=== PATIENT | male | born 1970 | race Caucasian/White ===

== ENCOUNTER 2019-06-11 11:44 | Inpatient (IN) | payer OTHER ==
--- NOTE | 2019-06-11 13:26 | BHS.RME ---
Substance Use & Tx History - Substance Use History Alcohol Substance amount: 3 pints of vodka Frequency of use: Daily Substance route: Oral Date of Last Use: 06/11/19 Nicotine Substance amount: 1/2 pack Frequency of use: Daily Substance route: Smoking Date of Last Use: 06/11/19 Physical/Psych/Mental Status - Behavior General Behavior: Increased activity (restlessness, agitation) Eye Contact: Normal - Cooperativeness Cooperativeness: Cooperative - Thinking Thought Processes: Tight, Logical, Goal Directed Thought content: Future oriented - Physical Health Problems Is patient presently having any pain?: No Does patient presently have any injuries (include location): No Does patient currently have a fever: No Is patient : No CIWA Nausea/Vomitin Muscle Tremors: 7-Severe,w/o Arm Extended Anxiety: 4-Mod. Anxious/Guarded Agitation: 4-Moderately Restless Paroxysmal Sweats: 3 Orientation: 1-Uncertain about Date Tacttile Disturbances: 0-None Auditory Disturbances: 0-None Visual Disturbances: 0-None Headache: 2-Mild CIWA-Ar Total Score: 23
--- NOTE | 2019-06-11 13:32 | HP ---
CIWA Score Nausea/Vomitin Muscle Tremors: 7-Severe,w/o Arm Extended Anxiety: 4-Mod. Anxious/Guarded Agitation: 4-Moderately Restless Paroxysmal Sweats: 3 Orientation: 1-Uncertain about Date Tacttile Disturbances: 0-None Auditory Disturbances: 0-None Visual Disturbances: 0-None Headache: 2-Mild CIWA-Ar Total Score: 23 - Admission Criteria OASAS Guidelines: Admission for Medically Managed Detox: Requires at least one of the followin. CIWA greater than 12 2. Seizures within the past 24 hours 3. Delirium tremens within the past 24 hours 4. Hallucinations within the past 24 hours 5. Acute intervention needed for co occurring medical disorder 6. Acute intervention needed for co occurring psychiatric disorder 7. Severe withdrawal that cannot be handled at a lower level of care (continued vomiting, continued diarrhea, abnormal vital signs) requiring intravenous medication and/or fluids 8. Admitting History and Physical - Admission Chief Complaint: "I want to stop drinking." History of Present Illness: 48 year old male with history of alcohol dependence with intoxication. He was here in 03/2019 and completed detox. He immediately relapsed. He is drinking up to 3 pints of vodka daily started at age 46 and last drank today. 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 He denies seizures. Nicotine: 10 ciggs per day started at age 11 and smoked today PMH: None Psurg: L4-L5 fusion surgery in 1995 Psych: PTSD from [place] War. He has poor recovery environment, he has poor judgment and poor coping skills exacerbated by his PTSD. He needs inpatient detox from alcohol. History Source: Patient Limitations to Obtaining History: No Limitations - Past Surgical History Additional Past Surgical History: back surgery in 1995 - Smoking History Smoking history: Current every day smoker Have you smoked in the past 12 months: Yes Aproximately how many cigarettes per day: 10 - Alcohol/Substance Use Hx Alcohol Use: Yes (3 pints vodka) Number of Drinks Daily: 10 - Social History Usual Living Arrangement: Yes: Alone Do you think of yourself as: Straight/Heterosexual ADL: Independent Occupation: unemployed History of Recent Travel: No Admission ROS [facility] Exam Limitations: No Limitations - Ebola screening Have you traveled outside of the country in the last 21 days: No Have you had contact with anyone from an Ebola affected area: No Have you been sick,other than usual withdrawal symptoms: No Do you have a fever: No - Review of Systems Constitutional: No Symptoms Reported EENT: reports: No Symptoms Reported Respiratory: reports: No Symptoms reported Cardiac: reports: No Symptoms Reported GI: reports: No Symptoms Reported : reports: No Symptoms Reported Musculoskeletal: reports: No Symptoms Reported Integumentary: reports: No Symptoms Reported Neuro: reports: No Symptoms reported Endocrine: reports: No Symptoms Reported Hematology: reports: No Symptoms Reported Psychiatric: reports: Judgement Intact, Agitated, Anxious Other Systems: Reviewed and Negative Patient History - Patient Medical History Hx Anemia: No Hx Asthma: No Hx Chronic Obstructive Pulmonary Disease (COPD): No Hx Cancer: No Hx Cardiac Disorders: No Hx Congestive Heart Failure: No Hx Hypertension: No Hx Hypercholesterolemia: No Hx Pacemaker: No HX Cerebrovascular Accident: No Hx Seizures: No Hx Dementia: No Hx Diabetes: No Hx Gastrointestinal Disorders: No Hx Liver Disease: No Hx Genitourinary Disorders: No Hx Sexually Transmitted Disorders: No Hx Renal Disease (ESRD): No Hx Thyroid Disease: No Hx Human Immunodeficiency Virus (HIV): No Hx Hepatitis C: No Hx Depression: No Hx Suicide Attempt: No Hx Bipolar Disorder: No Hx Schizophrenia: No - Patient Surgical History Hx Orthopedic Surgery: Yes (L4-L5 spinal fusion) - PPD History Previous Implant?: Yes Documented Results: Negative w/o proof Implanted On Prior R Admission?: No Date: 03/25/19 Results: negative PPD to be Administered?: Yes - Smoking Cessation Smoking history: Current every day smoker Have you smoked in the past 12 months: Yes Aproximately how many cigarettes per day: 10 Hx Chewing Tobacco Use: No Initiated information on smoking cessation: Yes 'Breaking Loose' booklet given: 06/11/19 - Substances abused Alcohol Substance route: Oral Frequency: Daily Amount used: 3 pints vodka Age of first use: 46 Date of last use: 06/10/19 Admission Physical Exam BHS - Physical General Appearance: Yes: No Apparent Distress, Nourished, Disheveled, Irritable , Sweating, Anxious, Other (had bed bug infestation) HEENTM: Yes: EOMI, Hearing grossly Normal, Normal ENT Inspection, Normocephalic , Normal Voice, TICO, Pharynx Normal, Tm's normal, Orbits (left orbital hematoma ) Respiratory: Yes: Chest Non-Tender, Lungs Clear, Normal Breath Sounds, No Respiratory Distress, No Accessory Muscle Use Neck: Yes: No masses,lesions,Nodules, Supple, Trachea in good position Breast: Yes: Within Normal Limits Cardiology: Yes: Regular Rhythm, Regular Rate, S1, S2 Abdominal: Yes: Normal Bowel Sounds, Non Tender, Flat, Soft Genitourinary: Yes: Within Normal Limits Back: Yes: Normal Inspection Musculoskeletal: Yes: full range of Motion, Gait Steady, Pelvis Stable Extremities: Yes: Normal Capillary Refill, Normal Inspection, Normal Range of Motion, Non-Tender Neurological: Yes: sample cutter II-XII NML intact, Fully Oriented, Alert, Motor Strength 5/5, Normal Mood/Affect, Normal Response Integumentary: Yes: Normal Color, Warm Lymphatic: Yes: Within Normal Limits - Diagnostic (1) Alcohol dependence with withdrawal Current Visit: Yes Status: Acute (2) Cachexia Current Visit: Yes Status: Acute (3) PTSD (post-traumatic stress disorder) Current Visit: Yes Status: Acute (4) Hx of spinal fusion Current Visit: Yes Status: Acute Screened but not Admitted - Documentation of Visit Screened but not Admitted: No Inpatient Rehab Admission - Rehab Decision to Admit Inpatient rehab admission?: No
[2019-06-11] MEDS ORDERED: MAG HYDROX/AL HYDROX/SIMETH 30 ML UNIT-DOSE CUP PO PRN (13:35)
[2019-06-11] MEDS ORDERED: MAGNESIUM HYDROX 2400MG/30ML ORAL SUSPENSION 30 ML CUP PO PRN (13:35)
[2019-06-11] MEDS ORDERED: BISMUTH SUBSALICYLATE 262 MG/15 ML BTL PO PRN (13:35)
[2019-06-11] MEDS ORDERED: MAGNESIUM CITRATE 300 ML BOTTLE PO PRN (13:35)
[2019-06-11] MEDS ORDERED: ACETAMINOPHEN 325 MG TABLET (FP) PO PRN ×2 (13:35)
[2019-06-11] MEDS ORDERED: MENTHOL/PHENOL 1 EACH UD MM PRN (13:35)
[2019-06-11] MEDS ORDERED: METHOCARBAMOL 500 MG TABLET PO PRN (13:35)
[2019-06-11] MEDS ORDERED: IBUPROFEN 400 MG TABLET (FP) PO PRN (13:35)
[2019-06-11] MEDS ORDERED: MELATONIN 5 MG TABLETS PO PRN (13:35)
[2019-06-11 13:50] VITALS: BMI 20.3
[2019-06-11] MEDS ORDERED: PERMETHRIN (NIX CREAM SCALP RINSE) 59 ML 1% BOTTLE TP ONE (14:15)
[2019-06-11] MEDS ORDERED: cloNIDine HCL 0.1 MG TABLET PO ONE (14:42)
[2019-06-11] MEDS ORDERED: chlordiazePOXIDE HCL 25 MG CAPSULE PO ONE (14:43)
--- NOTE | 2019-06-11 14:46 | PN ---
[facility] Progress Note Note: patient with withdrawal symptom Vital Signs Temperature 97.8 F 06/11/19 14:16 Pulse Rate 84 06/11/19 14:16 Respiratory Rate 18 06/11/19 14:16 Blood Pressure 187/118 H 06/11/19 14:16 O2 Sat by Pulse Oximetry (%) librium 50 mgs po now clonodine 0.1 mg po now close monitoring
[2019-06-11] MEDS: NICOTINE 14 MG/24 HOURS TOPICAL PATCH TD SCH (15:02)
[2019-06-11] MEDS: hydrOXYzine PAMOATE 25 MG CAPSULE (FP) PO PRN (15:04)
[2019-06-11] MEDS: chlordiazePOXIDE HCL 25 MG CAPSULE PO SCH ×2 (17:11→22:41)
[2019-06-11] MEDS: chlordiazePOXIDE HCL 25 MG CAPSULE PO PRN (18:52)
[2019-06-11] MEDS: THIAMINE HCL 100 MG TABLET (FP) PO SCH (22:40)
[2019-06-12] MEDS: chlordiazePOXIDE HCL 25 MG CAPSULE PO PRN (01:14)
[2019-06-12] MEDS: hydrOXYzine PAMOATE 25 MG CAPSULE (FP) PO PRN (01:16)
[2019-06-12] MEDS: chlordiazePOXIDE HCL 25 MG CAPSULE PO SCH ×4 (05:46→22:21)
--- NOTE | 2019-06-12 10:17 | PN ---
S CIWA - CIWA Score Nausea/Vomitin-No Nausea/No Vomiting Muscle Tremors: 2 Anxiety: 3 Agitation: 0-Normal Activity Paroxysmal Sweats: 3 Orientation: 0-Oriented Tacttile Disturbances: 1-Very Mild Itch/Numbness Auditory Disturbances: 0-None Visual Disturbances: 0-None Headache: 2-Mild CIWA-Ar Total Score: 11 [facility] Progress Note (SOAP) Subjective: c/o sweats, anxiety, shakes, and headache. Objective: 06/12/19 10:14 Vital Signs 06/12/19 06/12/19 06/12/19 03:28 07:23 09:30 Temperature 98.2 F 97.6 F Pulse Rate 94 H 87 Respiratory 16 18 18 Rate Blood Pressure 141/99 142/96 Labs pending. Assessment: 06/12/19 10:15 AOX3, in no respiratory distress. Full ROM. contact precaution maintained. Withdrawal symptoms. Methadone dose 100mg po daily verified by tameka Paredes RN, with Ronni Simmons, DEMARIO at [facility] ([phone]). As per RN, pt missed 4days. Was medicated with methadone 80mg po at his program on 06/11/19. Pt will continue with methadone 80mg po daily. Explained to pt which he verbalized understanding. Plan: continue detox.
[2019-06-12] MEDS: METHADONE HCL 40 MG DISPERSABLE TABLET PO SCH (10:59)
[2019-06-12] MEDS: PRENATAL VITAMINS W/ FOLIC ACID TABLET (FP) PO SCH (10:59)
[2019-06-12] MEDS: NICOTINE 14 MG/24 HOURS TOPICAL PATCH TD SCH (10:59)
[2019-06-12] MEDS ORDERED: FLU VACCINE QUAD 60 MCG/0.5 ML (MDV 19-20) IM ONE (12:00)
--- NOTE | 2019-06-12 14:50 | PN ---
[facility] Progress Note Note: I was called to see this 48year old male with c/o fall in his room. Pt was seen at bedside awake, alert, and verbally responsive and in no acute respiratory distress. Pt states, "I lost my balance and fell flat on my back". Pt denies hitting his head, denies any dizziness, lightheadedness, chest pain, headache, or LOC. Pt c/o generalized body weakness at the moment. Pt is a poor historian unable to elaborate on the fall. Fall was unwitnessed. As per clinical staff pharmacist, pt called while laying in bed and informed her that he fell. Pt refused for the practitioner to assess him at this time but agrees to go to the ED for evaluation. No visible injuries noted at this time. vital signs 96.7, 107, 20, 140/89. Verbal report given to Dr. Fernando at [facility] ED.
--- NOTE | 2019-06-12 20:32 | PN ---
[facility] Progress Note Note: Patient returns from ED after evaluation of fall on unit. CT scan neg. Patient w/ yellow/purple july-orbital discoloration (L) eye area. Non-tender. Alert. States hit head few days ago (prior to admission). Sclera clear. Gross tremors at rest. Denies headache. Denies back or leg pain. Gait steady. Movements quick. Thickened, silvery/whitish rash (L) anterior calf area 16 cm oval. Non-tender. Plan: ED visit reviewed and cleared for return to [facility]. Continue fall protocol. Encourage to avoid quick movements. Continue detox. No infestations of head, chest or july-anal hairs noted. D/c contact isolation. Cotisone to (L) leg eczema
[2019-06-12] MEDS ORDERED: HYDROCORTISONE 1% TOPICAL CREAM 30 GM TUBE TP PRN (20:48)
[2019-06-12] MEDS: THIAMINE HCL 100 MG TABLET (FP) PO SCH (22:21)
[2019-06-13] MEDS: chlordiazePOXIDE HCL 25 MG CAPSULE PO SCH ×2 (05:40→10:33)
[2019-06-13] MEDS: METHADONE HCL 40 MG DISPERSABLE TABLET PO SCH (05:40)
[2019-06-13 09:25] LABS: BASO % 1.9 % (0-2.0); EOS % 6.1 % (0-4.5); HEMATOCRIT 38.8 % (35.4-49); HEMOGLOBIN 13.2 GM/dL (11.7-16.9); LYMPH % 27.1 % (8-40); MCH 34.6 pg (25.7-33.7); MEAN PLT VOLUME 9.9 fl (7.5-11.1); MONO % 7.1 % (3.8-10.2); NEUT % 57.8 % (42.8-82.8); PLATELET COUNT 83 K/MM3 (134-434); RDW 14.3 % (11.9-15.9); WHITE BLOOD COUNT 4.9 K/mm3 (4.0-10.0)
[2019-06-13 09:34] LABS: ALBUMIN 3.2 g/dl (3.4-5.0); BILIRUBIN,TOTAL 0.9 mg/dL (0.2-1); BLOOD UREA NITROGEN 23.1 mg/dL (7-18); CALCIUM 9.2 mg/dL (8.5-10.1); POTASSIUM 3.8 mmol/L (3.5-5.1); TOT PROT 6.7 g/dl (6.4-8.2)
[2019-06-13] MEDS: PRENATAL VITAMINS W/ FOLIC ACID TABLET (FP) PO SCH (10:31)
[2019-06-13] MEDS: NICOTINE 14 MG/24 HOURS TOPICAL PATCH TD SCH (10:31)
[2019-06-13 11:34] VITALS: BP 104/78; PULSE 101; TEMP 96.2
--- NOTE | 2019-06-13 11:47 | PN ---
[facility] CIWA - CIWA Score Nausea/Vomitin-Mild Nausea/No Vomiting Muscle Tremors: 3 Anxiety: 3 Agitation: 2 Paroxysmal Sweats: 2 Orientation: 0-Oriented Tacttile Disturbances: 0-None Auditory Disturbances: 0-None Visual Disturbances: 2-Mild Sensitivity Headache: 0-None Present CIWA-Ar Total Score: 13 [facility] Progress Note (SOAP) Subjective: 48 years old male admitted on 06/11/19 for alcohol withdrawal sx management treating with librium detox regiment sitting on the edge of the bed eating breakfast alert speech clearly tolerate food and fluid well no trouble chewing nor swallowing
--- NOTE | 2019-06-13 11:54 | DS ---
[facility] Detox Discharge Summary Admission Date: 06/11/19 Discharge Date: 06/13/19 - History Present History: Alcohol Dependence Additional Comments: 48 years old male admitted on 06/11/19 for alcohol withdrawal sx management treated with librium detox regiment had unwitnessed fall sent to ER later return for detox Mr Magdaleno is alert oriented x 3 speech clearly coherently steady gait patient insists to leave the detox "things to do" patient requests clothing security has clothing for him Pertinent Past History: time for discharge 54 minutes patient walks out the detox unit "I do not need to be here" advertising writer call property [id number] that the patient has safely arrived the property area speech clearly patient insists to leave the detox and eventually walks out the unit appears in property area - Physical Exam Results Vital Signs: Vital Signs Temperature 96.2 F L 06/13/19 09:55 Pulse Rate 101 H 06/13/19 09:55 Respiratory Rate 18 06/13/19 09:55 Blood Pressure 104/78 06/13/19 09:55 O2 Sat by Pulse Oximetry (%) Pertinent Admission Physical Exam Findings: alcohol withdrawal Vital Signs Temperature 96.2 F L 06/13/19 09:55 Pulse Rate 101 H 06/13/19 09:55 Respiratory Rate 18 06/13/19 09:55 Blood Pressure 104/78 06/13/19 09:55 O2 Sat by Pulse Oximetry (%) Laboratory Last Values WBC 4.9 K/mm3 (4.0-10.0) 06/13/19 07:30 RBC 3.80 M/mm3 (4.00-5.60) L 06/13/19 07:30 Hgb 13.2 GM/dL (11.7-16.9) 06/13/19 07:30 Hct 38.8 % (35.4-49) 06/13/19 07:30 MCV 102.0 fl (80-96) H 06/13/19 07:30 MCH 34.6 pg (25.7-33.7) H 06/13/19 07:30 MCHC 34.0 g/dl (32.0-35.9) 06/13/19 07:30 RDW 14.3 % (11.9-15.9) 06/13/19 07:30 Plt Count 83 K/MM3 (134-434) L 06/13/19 07:30 MPV 9.9 fl (7.5-11.1) 06/13/19 07:30 Absolute Neuts (auto) 2.8 K/mm3 (1.5-8.0) 06/13/19 07:30 Neutrophils % 57.8 % (42.8-82.8) 06/13/19 07:30 Lymphocytes % 27.1 % (8-40) 06/13/19 07:30 Monocytes % 7.1 % (3.8-10.2) 06/13/19 07:30 Eosinophils % 6.1 % (0-4.5) H 06/13/19 07:30 Basophils % 1.9 % (0-2.0) 06/13/19 07:30 Nucleated RBC % 0 % (0-0) 06/13/19 07:30 Sodium 136 mmol/L (136-145) 06/13/19 07:30 Potassium 3.8 mmol/L (3.5-5.1) 06/13/19 07:30 Chloride 98 mmol/L (98-107) 06/13/19 07:30 Carbon Dioxide 31 mmol/L (21-32) 06/13/19 07:30 Anion Gap 7 MMOL/L (8-16) L 06/13/19 07:30 BUN 23.1 mg/dL (7-18) H 06/13/19 07:30 Creatinine 1.0 mg/dL (0.55-1.3) 06/13/19 07:30 Est GFR (CKD-EPI)AfAm 101.26 06/13/19 07:30 Est GFR (CKD-EPI)NonAf 87.37 06/13/19 07:30 Random Glucose 106 mg/dL (74-106) 06/13/19 07:30 Calcium 9.2 mg/dL (8.5-10.1) 06/13/19 07:30 Total Bilirubin 0.9 mg/dL (0.2-1) 06/13/19 07:30 AST 137 U/L (15-37) H 06/13/19 07:30 ALT 111 U/L (13-61) H 06/13/19 07:30 Alkaline Phosphatase 116 U/L (45-117) 06/13/19 07:30 Ammonia 53.20 umol/L (11-32) H 06/13/19 07:30 Total Protein 6.7 g/dl (6.4-8.2) 06/13/19 07:30 Albumin 3.2 g/dl (3.4-5.0) L 06/13/19 07:30 RPR Titer Nonreactive (NONREACTIVE) 06/13/19 07:30 lab noted low plt discontinue motrin ast elevation discontinue librium begin ativan ammonia elevatoin begin lactulose - Treatment Hospital Course: Detox Protocol Followed, Discharged Condition Good Patient has Accepted a Rehab Referral to: [facility] - Medication Discharge Medications: Ambulatory Orders NK [No Known Home Medication] 06/11/19 - Diagnosis (1) Increased ammonia level Current Visit: Yes Status: Chronic (2) Elevated AST (SGOT) Current Visit: Yes Status: Chronic (3) Temporary low platelet count Current Visit: Yes Status: Acute (4) Alcohol dependence with withdrawal Current Visit: Yes Status: Acute Qualifiers: Complication of substance-induced condition: uncomplicated Qualified Code(s ): F10.230 - Alcohol dependence with withdrawal, uncomplicated - AMA Did Patient Leave Against Medical Advice: Yes CIWA Score - CIWA Score Nausea/Vomitin-No Nausea/No Vomiting Muscle Tremors: 2 Anxiety: 3 Agitation: 0-Normal Activity Paroxysmal Sweats: 3 Orientation: 0-Oriented Tacttile Disturbances: 1-Very Mild Itch/Numbness Auditory Disturbances: 0-None Visual Disturbances: 0-None Headache: 2-Mild CIWA-Ar Total Score: 11
[2019-06-13] MEDS ORDERED: LORazepam 0.5 MG TABLET PO PRN (12:07)
[2019-06-13] MEDS ORDERED: LACTULOSE 20 GM/30 ML UDC (FOR ORAL USE ONLY) PO SCH (14:00)
[2019-06-13] MEDS ORDERED: LORazepam 0.5 MG TABLET PO SCH (17:00)
[2019-06-14] MEDS ORDERED: chlordiazePOXIDE HCL 10 MG CAPSULE PO PRN
[2019-06-14] MEDS ORDERED: chlordiazePOXIDE HCL 10 MG CAPSULE PO SCH (05:00)
[2019-06-14] MEDS ORDERED: LORazepam 0.5 MG TABLET PO SCH (05:00)
[2019-06-15] MEDS ORDERED: LORazepam 0.5 MG TABLET PO PRN (00:01)
[2019-06-15] MEDS ORDERED: chlordiazePOXIDE HCL 10 MG CAPSULE PO SCH (05:00)
[2019-06-15] MEDS ORDERED: LORazepam 0.5 MG TABLET PO SCH (05:00)
[2019-06-16] MEDS ORDERED: LORazepam 0.5 MG TABLET PO ONE (05:00)
[2019-06-16] MEDS ORDERED: chlordiazePOXIDE HCL 10 MG CAPSULE PO ONE (05:00)
== END 2019-06-13 11:50 | disposition left against medical advice (07) | DRG 770 ==
LOC: YASAS 11:44 → Y3N 13:44
PROVIDERS: ADMIT Allergy & Immunology; ATTEND Allergy & Immunology
PROC: HZ2ZZZZ Detoxification Services for Substance Abuse Treatment (ICD-10-PCS; principal; 2019-06-11)
DX: F10.230 Alcohol dependence with withdrawal, uncomplicated (principal); F17.210 Nicotine dependence, cigarettes, uncomplicated; F43.10 Post-traumatic stress disorder, unspecified; E72.20 Disorder of urea cycle metabolism, unspecified; D69.6 Thrombocytopenia, unspecified; R64 Cachexia; L30.9 Dermatitis, unspecified; R74.0 Nonspecific elevation of levels of transaminase and lactic acid dehydrogenase [LDH]; Z98.1 Arthrodesis status; Z91.013 Allergy to seafood
CPT/HCPCS: 36415; 80053; 82140; 85025; 86593; J0735; Q2036

== ENCOUNTER 2019-06-12 15:17 | Emergency (ER) | payer OTHER ==
--- NOTE | 2019-06-12 15:43 | PDOC ---
History of Present Illness - General Chief Complaint: Injury Stated Complaint: FALL Time Seen by Provider: 06/12/19 15:34 History Source: Patient Exam Limitations: No Limitations - History of Present Illness Initial Comments: Logan Magdaleno is a 48 yo M w a hx of alcohol dependence with withdrawal, PTSD from [place], and everyday smoker who presents to the [facility] er from [facility] after he tripped while waking to the bathroom and fell down on his lower back and buttocks. He states he definitely did not hit his head, he did not experience any LOC, has no pain now and had no pain after the fall, is ambulating per his baseline, has not had any alcohol in the past two days, requested not to come to the emergency room but was told it is fall protocol and he needs to be evaluated. The patient states he has no pain and does not want to be in the emergency room. - States he has a black and blue left eye which is old and has been present for 2 weeks. Denies headache, LOC, blood thinners, chest pain, SOB, weakness, numbness, tingling, chills. PCP: None PSH: L4-L5 fusion surgery in 1995 Social Hx: Smokes 10 cigs/day, drinks 3 pints vodka daily, Lives home alone and is independent in his ADL, unemployed Allergies: Fish containing products, NKDA Past History - Past Medical History Allergies/Adverse Reactions: Allergies Allergy/AdvReac Type Severity Reaction Status Date / Time Fish Containing Products Allergy Severe Swelling Verified 06/12/19 16:50 Home Medications: Ambulatory Orders NK [No Known Home Medication] 06/11/19 Anemia: No Asthma: No Cancer: No Cardiac Disorders: No CVA: No COPD: No CHF: No Dementia: No Diabetes: No GI Disorders: No Disorders: No HTN: No Hypercholesterolemia: No Kidney Stones: No Liver Disease: No Seizures: No Thyroid Disease: No - Surgical History Abdominal Surgery: No Appendectomy: No Cardiac Surgery: No Cholecystectomy: No Lung Surgery: No Neurologic Surgery: No Orthopedic Surgery: Yes (L4-L5 spinal fusion) - Reproductive History Testicular Surgery: No - Psycho Social/Smoking Cessation Hx Smoking History: Current every day smoker Have you smoked in the past 12 months: Yes Number of Cigarettes Smoked Daily: 10 'Breaking Loose' booklet given: 06/11/19 Hx Alcohol Use: Yes (3 pints vodka) Hx Substance Use Treatment: Yes Review of Systems - Review of Systems Able to Perform ROS?: Yes Comments:: CONSTITUTIONAL: Absent: fever, no chills, no fatigue EYES: Absent: visual changes ENT: Absent: ear pain, no sore throat CARDIOVASCULAR: Absent: chest pain, no palpitations RESPIRATORY: Absent: cough, no SOB GI: Absent: abdominal pain, no nausea, no vomiting, no constipation, no diarrhea GENITOURINARY: Absent: dysuria, no frequency, no hematuria MUSKULOSKELETAL: Absent: back pain, no arthralgia, no myalgia SKIN: Absent: rash NEURO: Absent: headache *Physical Exam - Physical Exam GENERAL: Patient is awake, alert and in no acute distress. Speech is clear and appropriate. HEAD: Atraumatic and nontender. HEENT: Black and blue left eye. Pupils are equal round and reactive to light, extraocular movements are intact. No facial deformity. No facial bone tenderness or step-off. The oropharynx is clear. NECK: The trachea is midline, there is no stridor. There is no midline cervical spine tenderness, full range of motion of neck. CHEST: Non-tender, no ecchymosis or abrasions. Equal chest wall expansion bilaterally. No flail segments. Lungs are clear to auscultation bilaterally. CARDIOVASCULAR: S1-S2, regular rate and rhythm. No murmurs or rubs. ABDOMEN: Soft, nontender, nondistended. Bowel sounds are normoactive. There is no abdominal or flank ecchymosis. BACK/PELVIS: There is no midline thoracic or lumbosacral spine tenderness or step-off. Pelvis is stable and nontender. EXTREMITIES: There is no extremity deformity or joint swelling. No focal bony tenderness throughout. 2+ distal pulses throughout. NEURO: Alert and oriented x3. Cranial nerves II through XII are intact. 5 out of 5 motor strength x4 extremities. No gross sensory deficits. Gpnnzy-gyes-zwnhyo is intact. No pronator drift. Gait is stable. SKIN: Left eye hematoma. No abrasions or lacerations. PSYCH: Affect is appropriate ED Treatment Course - RADIOLOGY Radiology Studies Ordered: Category Date Time Status SPINE-CERVICAL(PORTABLE)* [RAD] Stat Radiology 06/12/19 15:42 Ordered SPINE-LUMBAR ONLY [RAD] Stat Radiology 06/12/19 15:41 Ordered Medical Decision Making - Medical Decision Making Logan Magdaleno is a 48 yo M w a hx of alcohol dependence with withdrawal, PTSD from [place] war, and everyday smoker who presents to the [facility] er from [facility] after he tripped while waking to the bathroom and fell down on his lower back and buttocks. He states he definitely did not hit his head, he did not experience any LOC, has no pain now and had no pain after the fall, is ambulating per his baseline, has not had any alcohol in the past two days, requested not to come to the emergency room but was told it is fall protocol and he needs to be evaluated. The patient states he has no pain and does not want to be in the emergency room. - States he has a black and blue left eye which is old and has been present for 2 weeks. Vital Signs Temp Pulse Resp BP Pulse Ox 97.9 F 84 12 153/94 96 06/12/19 15:43 06/12/19 15:43 06/12/19 15:43 06/12/19 15:43 06/12/19 15:43 DDx IBNLT: Brain bleed, lumbar fx, back sprain Plan: Head CT, Lumbar XR, re-assess, likely DC back to [facility] CT: Unremarkable - No acute skull fracture, intracranial hemorrhage or parenchymal edema demonstrated. There is no acute cortical hemorrhage, edema, infarction, intracranial mass, hydrocephalus or abnormal extraaxial collection. The visualized paranasal sinuses and mastoids clear. Re-assessment: Patient persistently in no pain. CT negative. - I spoke with the doctor at [facility] who said we can send the patient back to [facility]. Disposition: [facility] Discharge - Discharge Information Problems reviewed: Yes Clinical Impression/Diagnosis: Fall Qualifiers: Encounter type: initial encounter Qualified Code(s): W19.XXXA - Unspecified fall, initial encounter Condition: Improved Disposition: HOME - Admission No - Follow up/Referral Referrals: [facility] at [facility] [Provider Group] - Patient Discharge Instructions Patient Printed Discharge Instructions: How to Prevent Falls Additional Instructions: You came into the ER after a fall. We did a head CT which showed no brain bleed. [facility] Come back to the ER with any new or worsening concerns. Thank you for coming to the [facility] ER. We hope you feel better soon! Print Language: ITALIAN - Post Discharge Activity
[2019-06-12 15:47] VITALS: BP 153/94; PULSE 84; TEMP 97.9; BMI 21.7
[2019-06-12] MEDS ORDERED: chlordiazePOXIDE HCL 25 MG CAPSULE PO ONE (16:29)
[2019-06-12] MEDS ORDERED: chlordiazePOXIDE HCL 25 MG CAPSULE ONE (16:42)
--- NOTE | 2019-06-12 16:46 | PDOC ---
Attending Attestation - Resident Resident Name: Jair Fernando - ED Attending Attestation I have performed the following: I have examined & evaluated the patient, The case was reviewed & discussed with the resident, I agree w/resident's findings & plan - HPI HPI: 06/12/19 16:38 48 yo M w a hx of alcohol dependence with withdrawal, PTSD from [place], and everyday smoker who presents to the [facility] er from [facility] after he tripped while waking to the bathroom and fell down on his lower back and buttocks. denies hitting his head, he did not experience any LOC, has no pain now and had no pain after the fall, is ambulating per his baseline, has not had any alcohol in the past two days, requested not to come to the emergency room but was told it is fall protocol and he needs to be evaluated. The patient states he has no pain and does not want to be in the emergency room. - States he has old healing bruising to his left eyebrow, which is old from 2 weeks ago Denies headache, LOC, blood thinners, chest pain, SOB, weakness, numbness, tingling, chills. no current back pain, ambulatory, gait stable. - Physicial Exam PE: 06/12/19 16:40 Physical exam: General: GCS 15 - NAD, appearing older than stated age HEENT: NCAT, PERRL, EOMI. Airway intact. Dentition intact. No e/o septal hematoma, nasal bridge stable. Neck: neck supple, no midline C spine tenderness or deformity, ROM intact. No anterior mass or crepitus, trachea midline. Resp: Lungs clear bilaterally, no respiratory distress. Chest: no clavicle or chest wall tenderness or crepitus CVS: 2+ pulses throughout. Abdomen: Abdomen soft, nontender, nondistended. Back: Back nontender, no midline spinal tenderness along cervical/thoracic/ lumbar spine, FROM, no stepoffs. MSK: Pelvis stable, Extremities symmetric, no focal areas of tenderness or deformities, proximal and distally, FROM in all extrem. Neuro: Alert, oriented appropriately. CN II-XII grossly symmetric and intact. no focal neuro deficits. Sensation and strength intact throughout. Gait normal/ stable. Skin: intact, normal color and well perfused. old ecchymosis to left eyebrow, nontender. - Medical Decision Making 06/12/19 16:46 Vital Signs Temp Pulse Resp BP Pulse Ox 97.9 F 84 12 153/94 96 06/12/19 15:43 06/12/19 15:43 06/12/19 15:43 06/12/19 15:43 06/12/19 15:43 Trauma ddx: ICH, SDH/ EDH, skull fx, C spine injury/strain, extremity sprain/ fracture, pelvis fracture. MSK contusion, msk spasms. Rib fractures. Clinically doubt Intra abdominal and thoracic injuries/bleed able to ambulate, neuro intact. no focal neuro deficits no cp or sob, no dizziness, no paresthesias, or weakness fall protocol for unwitnessed fall at detox today. will have head ct The patient was ruled out for clinically significant C-spine injury via NEXUS criteria. Because the patient is A&Ox3, has no focal neurologic deficits, no posterior midline c-spine tenderness to palpation, no evidence of intoxication and has no painful distracting injuries there is no need to obtain radiographic studies to evaluate the cervical spine. librium here for his etoh w/d. also no back pain, no midline sx. doubt compression fx. doubt cauda equina or spinal cord pathology no focal neuro changes. no imaging is indicated contact precautions maintained given his bed bugs and lice infestation. DC back to [facility], made aware of impression and plan. no acute pathology and stable for transfer back 06/12/19 18:04
== END 2019-06-12 19:55 | disposition home or self-care (01) ==
LOC: JER 15:17
DX: Z04.3 Encounter for examination and observation following other accident (principal); W18.39XA Other fall on same level, initial encounter; Y93.01 Activity, walking, marching and hiking; Y92.230 Patient room in hospital as the place of occurrence of the external cause; Y99.8 Other external cause status; F10.20 Alcohol dependence, uncomplicated; F43.10 Post-traumatic stress disorder, unspecified
CPT/HCPCS: 70450-TC; 72050-TC-FY; 72100-TC-FY; 99284-25